=== PATIENT | male | born 1960 | race Caucasian/White ===

== ENCOUNTER 2020-01-11 10:20 | Emergency (ER) | payer MEDICAID ==
[~2020-01-11] VITALS: Ht 170.2 cm; Wt 83.0 kg
[~2020-01-11 10:20] MED LIST: ASPI-611 PO; BAC10T PO; ENAL20TA PO; MELO7.5T12 PO; METF500T PO; PANT20TA3 PO; QUET100T33 PO; SIMV-45 PO
[2020-01-11 10:31] VITALS: BP 140/99
[2020-01-11] MEDS ORDERED: TOBR5DRO57 RIGHTEYE (11:11)
== END 2020-01-11 11:25 | disposition home or self-care (01) ==
LOC: ER 10:20
DX: S05.01XA Injury of conjunctiva and corneal abrasion without foreign body, right eye, initial encounter (principal); E11.9 Type 2 diabetes mellitus without complications; G89.29 Other chronic pain; Z98.890 Other specified postprocedural states; Z79.82 Long term (current) use of aspirin; Z79.899 Other long term (current) drug therapy; X58.XXXA Exposure to other specified factors, initial encounter; Y93.89 Activity, other specified; Y92.89 Other specified places as the place of occurrence of the external cause; Y99.8 Other external cause status
CPT/HCPCS: 99283

== ENCOUNTER 2021-02-25 18:44 | Emergency (ER) | payer MEDICAID ==
[~2021-02-25] VITALS: Ht 170.2 cm; Wt 79.5 kg
[~2021-02-25 18:44] MED LIST changes: +ENAL-79 PO; -ENAL20TA PO; +PANT20TA18 PO; -PANT20TA3 PO; -QUET100T33 PO; +QUET100T34 PO
[2021-02-25] MEDS ORDERED: AMOX-422 PO (22:07)
[2021-02-25] MEDS ORDERED: HYDR-3965 PO (22:07)
[2021-02-25 22:33] VITALS: BP 136/95
== END 2021-02-25 22:35 | disposition home or self-care (01) ==
LOC: ER 18:45
DX: K08.89 Other specified disorders of teeth and supporting structures (principal); K02.9 Dental caries, unspecified; E11.9 Type 2 diabetes mellitus without complications; I10 Essential (primary) hypertension; G89.29 Other chronic pain; F17.200 Nicotine dependence, unspecified, uncomplicated; Z79.82 Long term (current) use of aspirin; Z79.899 Other long term (current) drug therapy
CPT/HCPCS: 99283

== ENCOUNTER 2021-04-24 11:21 | Inpatient (IN) | payer MEDICAID ==
[~2021-04-24] VITALS: Ht 167.6 cm; Wt 59.5 kg
[2021-04-24] MEDS ORDERED: normal saline 1000ML IV soln IVB ONE (11:50)
[2021-04-24] MEDS ORDERED: haloperidol lactate 5mg/ml inj IM ONE (12:25)
[2021-04-24] MEDS ORDERED: diphenhydrAMINE 50 mg/ml inj IV ONE (12:25)
[2021-04-24 12:43] LABS: EOSINOPHILS % (AUTO) 0.7 % (0-6); LYMPHOCYTES # (AUTO) 5.9 X10'3 (1.1-4.8); MONOCYTES % (AUTO) 89.2 % (2-12)
[2021-04-24 12:46] LABS: BASOPHILS # (AUTO) 0.4 X10'3 (0-0.2); BASOPHILS % (AUTO) 0.4 % (0-1); EOSINOPHILS # (AUTO) 0.7 X10'3 (0-0.9); HEMATOCRIT 33.6 % (42.0-52.0); HEMOGLOBIN 11.1 g/dl (14.0-17.9); LYMPHOCYTES % (AUTO) 6.4 % (21-51); MEAN CORPUSCULAR HEMOGLOBIN 38.4 PG (27.0-31.0); MEAN CORPUSCULAR HGB CONC 33.1 g/dL (33.0-36.5); MEAN PLATELET VOLUME 7.3 FL (7.4-10.4); MONOCYTES # (AUTO) 81.2 X10'3 (0-0.9); NEUTROPHILS % (AUTO) 3.3 % (42-75); PLATELET COUNT 100 X10'3 (140-440); RED CELL DISTRIBUTION WIDTH 22.8 % (11.5-14.5)
[2021-04-24 12:50] LABS: ALANINE AMINOTRANSFERASE 26 U/L (12-78); ALBUMIN 2.9 G/DL (3.4-5.0); ALBUMIN/GLOBULIN RATIO 0.6 (1.1-1.5); ALKALINE PHOSPHATASE 128 IU/L (46-116); ANION GAP 16 (8-16); ASPARTATE AMINO TRANSFERASE 42 U/L (10-37); BILIRUBIN,TOTAL 0.6 MG/DL (0.1-1.0); BLOOD UREA NITROGEN 25 MG/DL (7-18); BUN/CREATININE RATIO 9.5 (5.4-32.0); CHLORIDE 102 MMOL/L (99-107); CREATINE KINASE 99 U/L (39-308); CREATININE 2.63 MG/DL (0.60-1.10); GLUCOSE 165 MG/DL (70-104); POTASSIUM 3.9 MMOL/L (3.5-5.1); SODIUM 141 MMOL/L (135-145); TOTAL CARBON DIOXIDE 22.8 MMOL/L (24-32); TOTAL PROTEIN 8.1 G/DL (6.4-8.2); eGFR 25 ML/MIN
[2021-04-24 13:10] LABS: CLARITY,URINE CLOUDY (Clear); COLOR,URINE YELLOW (Yellow); PROTEIN,URINE 100 mg/dl (Neg); UA COLLECTION TYPE STRAIGHT CATH
[2021-04-24 13:11] LABS: GLUCOSE, URINE NEGATIVE (Neg); KETONES,URINE TRACE mg/dl (Neg); LEUKOCYTE ESTERASE ,URINE NEGATIVE (Neg); NITRITES, URINE NEGATIVE (Neg); OCCULT BLOOD,URINE NEGATIVE (Neg); UROBILINOGEN,URINE 0.2 E.U/dL (0.2-1.0)
[2021-04-24 13:12] LABS: WHITE BLOOD COUNT 91.1 X10'3 (4.5-11.0)
[2021-04-24 13:14] LABS: ETHANOL < 0.010 GM/DL (0.0-0.010)
[2021-04-24 13:15] LABS: URINE AMPHETAMINE SCREEN POSITIVE (Neg); URINE BARBITUATE SCREEN NEGATIVE (Neg); URINE BENZODIAZEPINES SCREEN NEGATIVE (Neg); URINE CANNABINOID SCREEN POSITIVE (Neg); URINE COCAINE SCREEN NEGATIVE (Neg); URINE METHADONE SCREEN NEGATIVE (Neg); URINE OPIATE SCREEN NEGATIVE (Neg); URINE PHENCYCLIDINE SCREEN NEGATIVE (Neg)
[2021-04-24 13:17] LABS: MUCUS STRANDS FEW /LPF (Neg); SQUAMOUS EPITHELIAL CELL,UR FEW /LPF (FEW)
[2021-04-24 13:18] LABS: CELLULAR CAST 0-4 /LPF (NEGATIVE); COARSE GRANULAR CAST 0-3 /LPF (NEGATIVE)
[2021-04-24 13:19] LABS: AMORPHOUS URATES 3+; RENAL CELLS, URINE MANY /HPF
[2021-04-24 13:20] LABS: BACTERIA,URINE NONE SEEN /HPF (Neg); RBC,URINE 0-2 /HPF (0-2); TRANSITIONAL EPI CELLS,URINE MANY /HPF; WBC,URINE 0-4 /HPF (0-4)
[2021-04-24 13:26] LABS: ANISOCYTOSIS 3+; NUCLEATED RED BLOOD CELLS 2 /100WBC (0-0); PLATELET ESTIMATE DECREASED; TOTAL CELLS COUNTED 100
[2021-04-24 13:27] LABS: POLYCHROMASIA 1+
[2021-04-24] MEDS ORDERED: CefTRIAXone 2gm/D5W 50ml BAG 50 ML IV ONE (14:25)
--- NOTE | 2021-04-24 14:25 | NUR ---
Pt's sister, Yeimy, called. She wanted to inform us that 2 of his roomates tested positive for Covid-19 a few days ago. Also, her brother was sick at that time. She stated that he was vaccinated at [facility] in [place]. Also, that he becomes very confused, "out of his head" when he takes 2 seroquel.
--- NOTE | 2021-04-24 14:26 | NUR ---
Pt's sister, Yeimy's phone number is: [phone].
[2021-04-24] MEDS ORDERED: LORazepam 2 mg/ml vial IV ONE (14:30)
[2021-04-24] MEDS ORDERED: azithromycin/NS 500mg/250ml 250 ML IV ONE (16:00)
[2021-04-24] MEDS ORDERED: BACL20TA2 PO (16:03)
[2021-04-24] MEDS ORDERED: normal saline 1000ML IV soln IV ONE (16:05)
[2021-04-24] MEDS ORDERED: levoFLOXACIN-Levaquin 750MG/D5 150 ML IV STA (16:22)
[2021-04-24] MEDS ORDERED: potassium Cl 40MEQ/1/2NS 520ml 520 ML IV PRN ×2 (16:25)
[2021-04-24] MEDS: normal saline 1000ml 1,000 ML IV SCH (16:25)
[2021-04-24] MEDS ORDERED: magnesium 4gm in 100ml NS 100 ML IV PRN (16:25)
[2021-04-24] MEDS ORDERED: magnesium 2GM in 50ml NS 50 ML IV PRN (16:25)
[2021-04-24] MEDS ORDERED: bisacodyl 10mg suppository rectal RC PRN (16:25)
[2021-04-24] MEDS ORDERED: ondansetron/PF 4mg/2ml inj IV PRN (16:25)
[2021-04-24] MEDS ORDERED: acetaminophen 325mg tablet PO PRN (16:25)
[2021-04-24] MEDS ORDERED: potassium Cl 20 mEq SR tablet PO PRN ×2 (16:25)
[2021-04-24] MEDS ORDERED: glucagon, human recombinant 1mg kit SUBCUT PRN (16:45)
[2021-04-24] MEDS ORDERED: dextrose ORAL solution 15 GM/59 ML bottle PO PRN ×2 (16:45)
[2021-04-24] MEDS ORDERED: dextrose 50%-water 50ml dispensing syringe IV PRN ×2 (16:45)
[2021-04-24] MEDS ORDERED: insulin Lispro (HumaLOG) vial - multi-dose SQ SCH (16:45)
[2021-04-24] MEDS ORDERED: MESSAGE TO PHARMACY PO ONE (16:45)
[2021-04-24 17:17] LABS: HEMOGLOBIN 11.4 g/dl (14.0-17.9); MEAN CORPUSCULAR VOLUME 116.7 FL (78-98); RED CELL DISTRIBUTION WIDTH 22.8 % (11.5-14.5)
[2021-04-24 17:20] LABS: HEMATOCRIT 34.9 % (42.0-52.0); MEAN CORPUSCULAR HGB CONC 32.6 g/dL (33.0-36.5); MEAN PLATELET VOLUME 7.8 FL (7.4-10.4); PLATELET COUNT 94 X10'3 (140-440); RED BLOOD COUNT 2.99 X10'6 (4.70-6.10)
[2021-04-24 17:23] LABS: WHITE BLOOD COUNT 120.2 X10'3 (4.5-11.0)
[2021-04-24 17:42] LABS: TOTAL CELLS COUNTED 100
[2021-04-24 17:43] LABS: ANISOCYTOSIS 3+; PLATELET ESTIMATE DECREASED
[2021-04-24 17:44] LABS: LARGE PLATELETS FEW; POLYCHROMASIA FEW; SMUDGE CELLS 1+
[2021-04-24 17:45] LABS: GIANT PLATELET FEW; HYPOGRANULAR PLATELETS FEW
[2021-04-24 17:47] LABS: NUCLEATED RED BLOOD CELLS 1 /100WBC (0-0)
[2021-04-24 17:48] LABS: BASOPHILS % (MANUAL) 0 % (0-1)
[2021-04-24] MEDS: docusate sod 100mg capsule PO SCH (20:00)
[2021-04-24] MEDS: K and/or MAG REPLACEMENT MC SCH (20:00)
[2021-04-24] MEDS ORDERED: enoxaparin 30mg/0.3ml syringe SQ SCH (20:00)
[2021-04-24] MEDS ORDERED: insulin glargine (Lantus) pen - multi-dose SQ SCH (21:00)
[2021-04-24] MEDS ORDERED: quetiapine 100mg tablet PO SCH (21:00)
[2021-04-24] MEDS: cefepime 1GM/NS ADD-VANTAGE 100 ML IV SCH (21:29)
--- NOTE | 2021-04-24 22:30 | NUR ---
REPORT RECEIVED FROM RN SHARON, PT STILL NEEDS JEROME, MOANING IN BED. FOLLOWS SOME COMMANDS
[2021-04-25] MEDS: LORazepam 2 mg/ml vial IV PRN ×6 (00:35→15:27)
[2021-04-25] MEDS: normal saline 1000ml 1,000 ML IV SCH (02:25)
--- NOTE | 2021-04-25 04:00 | NUR ---
NOTED PT'S ARM SWOLLEN, WILL ADDRESS RICARDO, FLUIDS STOPPED, IV INFILTRATED, PT'S ARM WRAPPED IN WARM BLANKETS. CHARGE AWARE.
--- NOTE | 2021-04-25 04:53 | NUR ---
pt changed to dry bedding, bed bath, put in brief, new gown, v/s as noted
[2021-04-25 04:54] LABS: ALANINE AMINOTRANSFERASE 28 U/L (12-78); ALBUMIN 2.6 G/DL (3.4-5.0); ALBUMIN/GLOBULIN RATIO 0.5 (1.1-1.5); ALKALINE PHOSPHATASE 125 IU/L (46-116); ANION GAP 17 (8-16); ASPARTATE AMINO TRANSFERASE 73 U/L (10-37); BILIRUBIN,TOTAL 0.8 MG/DL (0.1-1.0); BLOOD UREA NITROGEN 25 MG/DL (7-18); BUN/CREATININE RATIO 13.2 (5.4-32.0); CALCIUM 8.1 MG/DL (8.5-10.1); CHLORIDE 104 MMOL/L (99-107); GLUCOSE 180 MG/DL (70-104); MAGNESIUM 1.6 MG/DL (1.5-2.4); POTASSIUM 3.2 MMOL/L (3.5-5.1); SODIUM 142 MMOL/L (135-145); TOTAL CARBON DIOXIDE 20.8 MMOL/L (24-32); TOTAL PROTEIN 7.7 G/DL (6.4-8.2); eGFR 36 ML/MIN
--- NOTE | 2021-04-25 05:15 | NUR ---
NEW IV STARTED, HOSPITALIST CALLED TO BEDSIDE TO CHECK PT. PT CONTINUES ROCKING, MOANING. V/S NOTED. MD WILL WRITE ORDERS FOR TYLENOL AND IS AWARE OF CRITICAL LABS.
[2021-04-25 05:27] LABS: LYMPHOCYTES # (AUTO) 8.5 X10'3 (1.1-4.8)
[2021-04-25 05:32] LABS: BASOPHILS # (AUTO) 0.9 X10'3 (0-0.2); BASOPHILS % (AUTO) 0.7 % (0-1); EOSINOPHILS # (AUTO) 0.6 X10'3 (0-0.9); EOSINOPHILS % (AUTO) 0.4 % (0-6); HEMATOCRIT 35.3 % (42.0-52.0); HEMOGLOBIN 11.2 g/dl (14.0-17.9); LYMPHOCYTES % (AUTO) 6.2 % (21-51); MEAN CORPUSCULAR HEMOGLOBIN 37.5 PG (27.0-31.0); MEAN CORPUSCULAR HGB CONC 31.9 g/dL (33.0-36.5); MEAN CORPUSCULAR VOLUME 117.7 FL (78-98); MEAN PLATELET VOLUME 7.3 FL (7.4-10.4); MONOCYTES # (AUTO) 122.8 X10'3 (0-0.9); MONOCYTES % (AUTO) 90.2 % (2-12); NEUTROPHILS # (AUTO) 3.4 X10'3 (1.8-7.7); NEUTROPHILS % (AUTO) 2.5 % (42-75); PLATELET COUNT 87 X10'3 (140-440); RED CELL DISTRIBUTION WIDTH 24.1 % (11.5-14.5)
[2021-04-25 05:43] LABS: WHITE BLOOD COUNT 136.1 X10'3 (4.5-11.0)
[2021-04-25] MEDS: acetaminophen 1,000mg/100ml IV 100 ML IV SCH ×2 (06:43→17:13)
[2021-04-25 07:20] LABS: BANDS% (MANUAL) 1 % (0-10); EOSINOPHILS % (MANUAL) 1 % (0-6); LYMPHOCYTES % (MANUAL) 12 % (21-51); MONOCYTES % (MANUAL) 10 % (2-12); NEUTROPHILS % (MANUAL) 1 % (42-75); TOTAL CELLS COUNTED 200
[2021-04-25 07:21] LABS: NUCLEATED RED BLOOD CELLS 1 /100WBC (0-0); SMUDGE CELLS 2+
[2021-04-25 07:22] LABS: IMMATURE CELLS 75 % (0-0); PLATELET ESTIMATE DECREASED
[2021-04-25 07:23] LABS: HYPOGRANULAR PLATELETS FEW; LARGE PLATELETS FEW
[2021-04-25 07:24] LABS: ANISOCYTOSIS 3+; GIANT PLATELET FEW; HYPOCHROMASIA 1+; SCHISTOCYTES FEW; TEAR DROP CELLS FEW
[2021-04-25] MEDS ORDERED: adenosine 3mg/ml 2ml vial IV ONE ×2 (08:00→17:00)
[2021-04-25] MEDS ORDERED: lisinopril 20mg tablet PO SCH (08:00)
[2021-04-25] MEDS ORDERED: aspirin 81mg, enteric-coated 1 TAB TABLET.DR PO SCH (08:00)
[2021-04-25] MEDS: K and/or MAG REPLACEMENT MC SCH (08:00)
[2021-04-25] MEDS: docusate sod 100mg capsule PO SCH (08:00)
[2021-04-25] MEDS ORDERED: pantoprazole 40mg Tablet.DR PO SCH (08:00)
--- NOTE | 2021-04-25 08:10 | NUR ---
Spoke with Tatyana at [facility], updated clinicals, faxed requested documentation, states will call when bed is available
--- NOTE | 2021-04-25 08:19 | NUR ---
HOSPITALIST DR. MCKEON CALLED AND INFORMED PT HR 140S-160S. RECEIVED VO TO GIVE DILTIAZAM 10MG IV x 1 now
[2021-04-25] MEDS ORDERED: diltiazem 5mg/ml 5ml inj. IV ONE ×2 (08:20→16:20)
[2021-04-25] MEDS: cefepime 1GM/NS ADD-VANTAGE 100 ML IV SCH (08:56)
[2021-04-25] MEDS ORDERED: digoxin 250mcg/ml 2ml ampule IV ONE (09:30)
--- NOTE | 2021-04-25 11:50 | NUR ---
Pt is aggitated. Moans and squirms in the bed. Lists to his Right. Unable to understand speech. SHIELDS. Very strong. Does not follow commands. RR >30, moist lung sounds throughout. Pupils 2mm and reactive. Placed a condom cath on pt for I&O's.
[2021-04-25] MEDS ORDERED: diazepam inj 5 MG/ML inj. IV ONE (12:20)
[2021-04-25] MEDS ORDERED: amiodarone 150mg/dext, iso-os 100 ML IV ONE (13:15)
--- NOTE | 2021-04-25 13:15 | NUR ---
Dr. Quinn at bedside to speak with pt's sister, Yeimy.
--- NOTE | 2021-04-25 13:42 | NUR ---
Spoke with Joe at [facility], request COVID results, transfer agreement, d/c summary to be faxed, faxed along with orders to [phone]
[2021-04-25] MEDS ORDERED: ziprasidone IM 20mg inj **IM only IM ONE (14:15)
--- NOTE | 2021-04-25 15:21 | NUR ---
[facility] and [facility] unable to provide transport, [facility] to do transport at 1615, will call back to confirm after flight check
--- NOTE | 2021-04-25 15:32 | NUR ---
[facility] confirms transport time of 1630, notified ER staff, packet complete
--- NOTE | 2021-04-25 15:45 | NUR ---
Hospitalist Dr. Kai maciel, to inform of pts continued HR 140s-170 and now pt RRPM 36-44
--- NOTE | 2021-04-25 15:47 | NUR ---
[facility] WILL BE HERE AT ABOUT 18:15 TO PICK PT UP
[2021-04-25] MEDS ORDERED: diltiazem-NS 100mg/100ml 100 ML IV SCH (16:00)
--- NOTE | 2021-04-25 16:10 | NUR ---
Awaiting return call from hospitalist, pt VSs reported to ED Dr. Trina MD placing orders to start Cardizem gtt.
--- NOTE | 2021-04-25 16:15 | NUR ---
Received call from MD hospitalist Dr. Quinn and updated pt with Cardizem gtt order, MD instructs to follow through with cardizem gtt order.
--- NOTE | 2021-04-25 16:20 | NUR ---
VO from Dr. Mena to administer 20mg Cardizem IV x 1 now for loading dose
--- NOTE | 2021-04-25 16:55 | NUR ---
VO ADMINISTER 6MG ADENOSINE IV X 1 NOW, MD MCKEON AT BEDSIDE, MED ADMINISTERED
--- NOTE | 2021-04-25 17:00 | NUR ---
ADMINISTERED 12MG ADENOSINE IV PER VO DR MIKE MD AT BEDSIDE DURING ADMINISTRATION.
[2021-04-25] MEDS ORDERED: metoprolol tartrate 1mg/ml inj IV STA (17:03)
--- NOTE | 2021-04-25 17:05 | NUR ---
ADMINISTERED 2ND DOSE OF 12MG ADENOSINE IV PER VO DR. MIKE MD REMAINS AT BEDSIDE.
[2021-04-25 17:08] VITALS: BP_DIAS 81
[2021-04-25 17:30] VITALS: BP_SYST 120
[2021-04-26] MEDS ORDERED: levoFLOXACIN-Levaquin 750MG/D5 150 ML IV SCH (08:00)
== END 2021-04-25 18:15 | disposition short-term general hospital (02) | DRG 52 ==
LOC: ER 11:21 → ED HOLD 16:36
PROVIDERS: ADMIT Family Medicine; ATTEND Family Medicine
DX: G92.9 Unspecified toxic encephalopathy (principal); N17.0 Acute kidney failure with tubular necrosis; C95.00 Acute leukemia of unspecified cell type not having achieved remission; Q28.2 Arteriovenous malformation of cerebral vessels; I47.1 Supraventricular tachycardia; D69.6 Thrombocytopenia, unspecified; E87.2 Acidosis; E86.0 Dehydration; I48.91 Unspecified atrial fibrillation; F15.90 Other stimulant use, unspecified, uncomplicated; Z20.822 Contact with and (suspected) exposure to COVID-19; E11.9 Type 2 diabetes mellitus without complications; E78.5 Hyperlipidemia, unspecified; G89.29 Other chronic pain; M54.9 Dorsalgia, unspecified; Z79.899 Other long term (current) drug therapy; Z79.82 Long term (current) use of aspirin
CPT/HCPCS: 36415; 70450; 71045; 71250; 74176; 80053; 80305; 80320; 81001; 82140; 82550; 82948; 83036; 83605; 83735; 84145; 85007; 85025; 87040; 87635; 92508; 92616; 93005; 96361; 96365; 96372; 96375; 99291; C9803; G0378; J0131; J0153; J0456; J0692; J0696; J1160; J1200; J1630; J1815; J1956; J2060; J3360; J3486; J3490; J7030